=== PATIENT | female | born 1975 | race African-American/Black ===

== ENCOUNTER 2025-02-18 23:06 | Emergency (ER) | payer SELFPAY ==
[~2025-02-18] VITALS: Ht 170.2 cm; Wt 77.6 kg
[2025-02-18 23:22] VITALS: PULSE 78; RESP 18; TEMP 97
[2025-02-18] MEDS ORDERED: CEPHALEXIN 500 MG CAP PO SCH (23:45)
[2025-02-18] MEDS ORDERED: CEPHALEXIN MONOHYDRATE 250 MG CAP ONE (23:58)
[2025-02-19] MEDS ORDERED: CEPHALEXIN MONOHYDRATE 250 MG CAP ONE (00:05)
[2025-02-19] MEDS: BACITRACIN ZINC 0.9GM TP ONE (00:05)
[2025-02-19] MEDS: CEPHALEXIN MONOHYDRATE 250 MG CAP PO ONE (00:05)
[2025-02-19] MEDS ORDERED: CEPHALEXIN500 MG PO (00:12)
[2025-02-19] MEDS ORDERED: DOXYCYCLINE HY100 MG PO (00:13)
[2025-02-19 00:25] VITALS: BP 157/87; PULSE 78; RESP 18; TEMP 97; O2SAT 100
== END 2025-02-19 00:25 | disposition home or self-care (01) ==
LOC: FSED 23:13
DX: S91.331A Puncture wound without foreign body, right foot, initial encounter (principal)
CPT/HCPCS: 99282